=== PATIENT | male | born 1955 | race Caucasian/White ===

== ENCOUNTER 2022-08-23 09:08 | Emergency (ER) | payer OTHER, SELFPAY ==
[2022-08-23 09:13] VITALS: BP 136/87; PULSE 92; RESP 24; TEMP 37; BMI 34.0
[2022-08-23 09:15] VITALS: PULSE 86; RESP 26; O2SAT 92
[2022-08-23 09:17] VITALS: PULSE 89; RESP 22; O2SAT 95
[2022-08-23 09:18] VITALS: BP 136/87
--- NOTE | 2022-08-23 09:24 | XR_ITS ---
[facility] [place] [id number] Patient Name: GILDARDO CHARLTON MRN: [id number] date: 1955 Sex: M Assigned Patient Location: ER Current Patient Location: ER Accession/Order Number: [id number] Exam Date: 08/23/2022 09:32 Report Date: 08/23/2022 10:00 At the request of: ELIZA RIOS Procedure: XR chest 1V EXAMINATION: XR chest 1V 08/23/2022 6:59 AM PDT HISTORY: SOB, cough TECHNIQUE: Single frontal view of the chest acquired. COMPARISONS: Chest x-ray 08/19/2021. FINDINGS: Lines/tubes/other: None. Heart and mediastinum: Stable. Bones: No acute osseous abnormality. Lungs: The lungs are clear. There is no evidence of pneumonia or pulmonary edema. Pleura: There is no significant pleural effusion or pneumothorax. Other: None. IMPRESSION: No acute cardiopulmonary abnormality. Electronically authenticated by: YURIDIA VIRK Date: 08/23/2022 10:00
--- NOTE | 2022-08-23 09:24 | ECG_ITS ---
[facility] Test Date: 2022-08-23 Pat Name: GILDARDO CHARLTON Department: Room: - Gender: Male [employer]or: : 1955 Requested By: Tino Gracia Order Number: [id number] Reading MD: ARIANE HILL Measurements Intervals [place] Rate: 85 P: 63 OR: 204 QRS: -11 QRSD: 112 T: 90 QT: 368 QTc: 410 Interpretive Statements 1100 Sinus rhythm 2440 Incomplete right bundle branch block 3114 Cannot rule out anterior myocardial infarction, age undetermined 8102 Low QRS voltage in chest leads 9150 abnormal ECG No previous ECG available for comparison Electronically Signed On 08-23-2022 19:47:23 EDT by ARIANE HILL
--- NOTE | 2022-08-23 09:25 | ED_ITS ---
HPI - SOB/Dyspnea General Chief Complaint: Shortness of Breath/Dyspnea Stated Complaint: SHORTNESS OF BREATH Time Seen by Provider: 08/23/22 09:16 Source: patient Mode of arrival: walk-in Limitations: no limitations History of Present Illness HPI Narrative: 67-year-old male presents to the emergency Department for cough and shortness of breath. He is not coughing up any phlegm. He is worried about pneumonia. He does not seem to have a history of congestive heart failure. His ankles are very slightly swollen but they've been like that for about six months. No known fever or hemoptysis. Exertion makes it worse. Related Data Home Medications Medication Instructions Recorded Confirmed amlodipine 5 mg tablet 5 mg PO DAILY 08/23/22 08/23/22 clopidogrel 75 mg tablet 75 mg PO DAILY 08/23/22 08/23/22 donepezil 10 mg tablet 10 mg PO DAILY 08/23/22 08/23/22 lisinopril 20 1 tab PO DAILY 08/23/22 08/23/22 mg-hydrochlorothiazide 25 mg tablet Previous Rx's Medication Instructions Recorded benzonatate 200 mg capsule 200 mg PO TID PRN cough #20 caps 08/23/22 doxycycline monohydrate 100 mg 100 mg PO BID #14 caps 08/23/22 capsule Allergies Allergy/AdvReac Type Severity Reaction Status Date / Time No Known Drug Allergies Allergy Verified 08/23/22 09:12 Review of Systems ROS Narrative A ten point review of systems is negative except as noted above. [facility] Medical History (Updated 08/23/22 @ 11:23 by Juan Lyons MD) Surgical History (Updated 08/23/22 @ 09:42 by Nishant Fry) Social History Smoking status: Never smoker Exam Narrative Exam Narrative: Nurses note and vital signs reviewed and patient is not hypoxic. General: The patient appears well and in no apparent distress. Patient is resting comfortably on cart. Skin: Warm, dry, no pallor noted. There is no rash noted. Head: Normocephalic, atraumatic Eye: Normal conjunctiva, no drainage Ears, Nose, Mouth, and Throat: oral mucosa is moist. Nares patent. Cardiovascular: Regular Rate and Rhythm Respiratory: Patient is in no distress, no accessory muscle use, lungs are clear to auscultation, no wheezing, rales or rhonchi Back: non-tender GI: soft and nontender Musculoskeletal: trace edema present in each ankle Neurological: A&O, normal speech Psychiatric: Cooperative Constitutional Vital Signs - 24 hr 08/23/22 09:13 Temperature 98.6 F Pulse Rate [Monitor] 92 H Respiratory Rate 24 Blood Pressure [Left Arm] 136/87 H Course Vital Signs Vital signs: Vital Signs Temperature 98.6 F 08/23/22 09:13 Pulse Rate 92 H 08/23/22 09:13 Respiratory Rate 24 08/23/22 09:13 Blood Pressure 136/87 H 08/23/22 09:13 Temperature 98.6 F 08/23/22 09:13 Pulse Rate 92 H 08/23/22 09:13 Respiratory Rate 24 08/23/22 09:13 Blood Pressure 136/87 H 08/23/22 09:13 MDM - SOB/Dyspnea MDM Narrative Medical decision making narrative: his workup here including chest x-ray, troponin, and BNP is negative. He'll be discharged home on doxycycline and Tessalon. Treatment diagnosis and follow-up were discussed with the patient and his . Differential Diagnosis Differential diagnosis: Likely congestive heart failure, community acquired pneumonia and other (upper respiratory infection) Lab Data Attestation: I reviewed the patient's lab results. Labs: Lab Results 08/23/22 Range/Units 09:21 WBC 7.2 (4.0-11.0) 10^3/uL RBC 4.39 L (4.70-6.10) 10^6/uL Hgb 14.5 (14.0-18.0) g/dL Hct 42.4 (42.0-54.0) % MCV 96.6 H (80.0-94.0) fL MCH 33.0 (25.9-34.0) pg MCHC 34.2 (29.9-35.2) g/dL RDW 12.1 (11.0-15.0) % Plt Count 159 (150-450) 10^3/uL MPV 10.6 (9.5-13.5) fL Neut % (Auto) 68.9 (43.0-75.0) % Lymph % (Auto) 17.2 L (20.5-60.0) % [place] % (Auto) 9.7 (1.7-12.0) % Eos % (Auto) 3.5 (0.9-7.0) % Baso % (Auto) 0.4 (0.2-2.0) % Neut # (Auto) 5.0 (1.4-6.5) 10^3/uL Lymph # (Auto) 1.2 (1.2-3.8) 10^3/uL [place] # (Auto) 0.7 (0.3-0.8) 10^3/uL Eos # (Auto) 0.3 (0.0-0.7) 10^3/uL Baso # (Auto) 0.0 (0.0-0.1) 10^3/uL Abs Immat Gran (auto) 0.02 (0.00-0.03) 10^3/uL Imm/Tot Granulo (auto) 0.3 (0.0-0.5) % Sodium 140 (136-145) mmol/L Potassium 4.3 (3.5-5.1) mmol/L Chloride 102 (98-107) mmol/L Carbon Dioxide 31.8 (21.0-32.0) mmol/L Anion Gap 10.5 BUN 18.0 (7.0-18.0) mg/dL Creatinine 0.91 (0.70-1.30) mg/dL Est GFR ( Amer) >60 (>=60) Est GFR (Non-Af Amer) >60 (>=60) BUN/Creatinine Ratio 19.8 Glucose 154 H (74-106) mg/dL Calcium 9.3 (8.5-10.1) mg/dL Troponin I High Sens 11.5 (4.0-76.1) pg/mL NT-Pro-B Natriuret Pep 23.0 (<=900.0) pg/mL Discharge Plan Discharge Chief Complaint: Shortness of Breath/Dyspnea Clinical Impression: Upper respiratory infection Patient Disposition: Home, Self-Care Time of Disposition Decision: 11:20 Condition: Good Mode of Transportation: Private Vehicle Prescriptions / Home Meds: New doxycycline monohydrate 100 mg capsule 100 mg PO BID Qty: 14 0RF benzonatate 200 mg capsule 200 mg PO TID PRN (Reason: cough) Qty: 20 0RF No Action amlodipine 5 mg tablet 5 mg PO DAILY clopidogrel 75 mg tablet 75 mg PO DAILY donepezil 10 mg tablet 10 mg PO DAILY lisinopril-hydrochlorothiazide 20-25 mg tablet 1 tab PO DAILY Instructions: Upper Respiratory Infection (ED) Stand Alone Forms: Portal Instructions Referrals: MONICA ROSAS [Primary Care Provider] - 1 week
[2022-08-23 10:09] LABS: Basophils Percent Auto 0.4 % (0.2-2.0); Eosinophils Absolute Auto 0.3 10^3/uL (0.0-0.7); Eosinophils Percent Auto 3.5 % (0.9-7.0); Hematocrit 42.4 % (42.0-54.0); Hemoglobin 14.5 g/dL (14.0-18.0); Immature Granulocytes Abs Auto 0.02 10^3/uL (0.00-0.03); Immature Granulocytes Pct Auto 0.3 % (0.0-0.5); Lymphocytes Absolute Auto 1.2 10^3/uL (1.2-3.8); Lymphocytes Percent Auto 17.2 % (20.5-60.0); Mean Corpuscular HGB Conc 34.2 g/dL (29.9-35.2); Mean Corpuscular Volume 96.6 fL (80.0-94.0); Mean Platelet Volume 10.6 fL (9.5-13.5); Monocytes Absolute Auto 0.7 10^3/uL (0.3-0.8); Monocytes Percent Auto 9.7 % (1.7-12.0); Neutrophils Percent Auto 68.9 % (43.0-75.0); Platelet Count 159 10^3/uL (150-450); Red Blood Count 4.39 10^6/uL (4.70-6.10); Red Cell Distribution Width 12.1 % (11.0-15.0); White Blood Count 7.2 10^3/uL (4.0-11.0)
[2022-08-23 10:50] LABS: Anion Gap 10.5; BUN Creatinine Ratio 19.8; Calcium 9.3 mg/dL (8.5-10.1); Carbon Dioxide 31.8 mmol/L (21.0-32.0); Chloride 102 mmol/L (98-107); Estimated GFR (African America >60 (>=60); Estimated GFR (Non-African Ame >60 (>=60); Glucose 154 mg/dL (74-106); Potassium 4.3 mmol/L (3.5-5.1); Sodium 140 mmol/L (136-145); Troponin I High Sensitivity 11.5 pg/mL (4.0-76.1)
[2022-08-23] MEDS: ACETAMINOPHEN 325 MG TABLET 650 MG PO (10:53)
[2022-08-23 11:38] VITALS: PULSE 89; RESP 20; O2SAT 98
== END 2022-08-23 11:41 | disposition home or self-care (01) ==
PROVIDERS: Emergency Provider Emergency Medicine; PCP Family Medicine
DX: J06.9 Acute upper respiratory infection, unspecified (principal); Z79.899 Other long term (current) drug therapy; R06.02 Shortness of breath
CPT/HCPCS: 36415; 71045; 80048; 83880; 84484; 85025; 93005; 99285